=== PATIENT | male | born 1965 | race African-American/Black ===

== ENCOUNTER 2023-05-18 14:11 | Emergency (ER) | payer OTHER, SELFPAY ==
--- NOTE | ~2023-05-18 | XR_ITS ---
XR foot LT min 3V DATE: 05/18/2023 16:20 INDICATION: Heel pain TECHNIQUE: 4 views COMPARISON: None FINDINGS: Severe posterior calcaneal enthesopathy. No associated erosive change or periostitis. There is osteoarthritic change at the tibiotalar and first metatarsophalangeal joints. No fracture or dislocation, periosteal reaction or bone destruction is detected. IMPRESSION: Severe posterior calcaneal enthesopathy Osteoarthritis Reviewed, dictated and finalized at location B.
[2023-05-18 15:19] VITALS: BP 150/93; PULSE 67; RESP 20; TEMP 36.1; O2SAT 100
--- NOTE | 2023-05-18 17:49 | ED.LOWEXIN ---
HPI - Extremity Injury (Lower) General Chief Complaint: Extremity Injury, Lower Stated Complaint: left heel pain Time Seen by Provider: 05/18/23 17:11 Source: patient Mode of arrival: ambulatory Limitations: no limitations History of Present Illness HPI Narrative: This is a 58-year-old male that presents to the emergency department for left heel pain. Ongoing over the last 4 days. No known injury or trauma. Reports the pain is worse with ambulation. He has been taking Tylenol for pain. Denies erythema, edema, decreased range of motion or numbness Related Data Allergies Allergy/AdvReac Type Severity Reaction Status Date / Time ibuprofen [From Motrin] AdvReac Ulcers Verified 05/18/23 16:01 Review of Systems Review of Systems: CONSTITUTIONAL: Denies fever MUSCULOSKELETAL: Reports joint pain, and myalgia. NEUROLOGIC: Denies numbness, or weakness. All systems reviewed & are unremarkable except as noted in HPI and below PMFSH Past Medical History Medical History (Updated 05/18/23 @ 17:54 by Christy Vazquez PA-C) History of hyperlipidemia History of hypertension Social History Social History (Updated 05/18/23 @ 17:50 by Christy Vazquez PA-C) Smoking status: Never smoker Exam Narrative: GENERAL: Well-appearing, well-nourished, and in no acute distress. HEAD: Normocephalic, atraumatic. EYES: EOMI. EXTREMITIES: Normal range of motion. No edema, erythema or warmth. Normal DP pulse. Normal sensation. Tender to palpation of the insertion of the Achilles tendon on the calcaneus, which is intact. SKIN: Warm, dry, no rash. NEURO: No focal deficits. Alert and oriented x3. PSYCH: Normal mood and affect Course Course Emergency Course: Patient agrees with plan of care Vital Signs Vital signs: Vital Signs Temperature 97.0 F L 05/18/23 15:19 Pulse Rate 67 05/18/23 15:19 Respiratory Rate 20 05/18/23 15:19 Blood Pressure 150/93 H 05/18/23 15:19 Pulse Oximetry 100 05/18/23 15:19 Oxygen Delivery Room Air 05/18/23 15:19 Temperature 97.0 F L 05/18/23 15:19 Pulse Rate 67 05/18/23 15:19 Respiratory Rate 20 05/18/23 15:19 Blood Pressure 150/93 H 05/18/23 15:19 Pulse Oximetry 100 05/18/23 15:19 Oxygen Delivery Room Air 05/18/23 15:19 MDM - Extremity Injury (Lower) MDM Narrative Medical decision making narrative: Patient presents to the emergency department for left heel pain ongoing over the last 4 days. No recent injury or trauma. Patient is neurovascularly intact. Left foot x-ray shows severe posterior calcaneal enthesopathy and osteoarthritis. Patient was updated on work-up. Placed in postop shoe and given crutches for comfort. Instructed to rest, ice and take [id number] pain medication as needed. He is to follow-up with his doctor. He was given warnings to return to the ER Differential Diagnosis Differential diagnosis: Likely ankle sprain and strain and other (Achilles tendinitis, enthesopathy) Imaging Data Radiologist's impression: ITS Impressions Foot X-Ray 05/18/23 16:30 IMPRESSION: Severe posterior calcaneal enthesopathy Osteoarthritis Critical Care Time Critical Care Time Critical Care Time: No Discharge Plan Discharge Clinical Impression: Pain of left heel Patient Disposition: Home, Self-Care Condition: Stable Instructions: Achilles Tendinitis (ED) Additional Instructions: Return to the ER if you experience fever, redness and swelling of your extremity, numbness or any other symptoms that are concerning to you Wear post op shoe and use crutches. No weight on the affected leg until able to bear weight without pain. Ice and elevate extremity. Tylenol as needed for pain. Discuss with your doctor if you are able to take anti-inflammatories Follow up with your doctor for further care. Follow-up/Referrals: [facility] [Primary Care Provider] - 1 Week
[2023-05-18 18:19] VITALS: RESP 20
== END 2023-05-18 18:20 | disposition home or self-care (01) ==
PROVIDERS: Emergency Provider Physician Assistant
DX: M79.672 Pain in left foot (principal); I10 Essential (primary) hypertension; E78.5 Hyperlipidemia, unspecified
CPT/HCPCS: 73630; 99283